=== PATIENT | male | born 1995 | race Caucasian/White ===

== ENCOUNTER 2021-08-22 12:38 | Emergency (ER) | payer OTHER ==
[2021-08-22 12:44] VITALS: BP 128/85; PULSE 87; TEMP 98.6; BMI 32.5
[2021-08-22] MEDS ORDERED: KETOROLAC TROMETHAMINE 30 MG/1 ML VIAL IM ONE (13:44)
[2021-08-22] MEDS ORDERED: KETOROLAC TROMETHAMINE 30 MG/1 ML VIAL ONE (13:45)
== END 2021-08-22 14:12 | disposition home or self-care (01) ==
LOC: JERFT 12:38
PROC: 3E0233Z Introduction of Anti-inflammatory into Muscle, Percutaneous Approach (ICD-10-PCS; principal; 2021-08-22)
DX: S93.492A Sprain of other ligament of left ankle, initial encounter (principal); X50.0XXA Overexertion from strenuous movement or load, initial encounter
CPT/HCPCS: 73610-TC-LT-FY; 99284-25

== ENCOUNTER 2023-08-11 16:01 | Emergency (ER) | payer SELFPAY ==
[2023-08-11 16:22] VITALS: RESP 18; TEMP 97.8; BMI 34.9
[2023-08-11] MEDS ORDERED: ONDANSETRON 4 MG/2 ML VIAL ONE (16:54)
[2023-08-11] MEDS: ONDANSETRON 4 MG/2 ML VIAL IVPUSH ONE (17:11)
[2023-08-11 17:27] LABS: HEMATOCRIT 47.1 % (35.4-49); HEMOGLOBIN 16.2 GM/dL (11.7-16.9); MCH 30.2 pg (25.7-33.7); MCHC 34.3 g/dl (32.0-35.9); MEAN CELL VOLUME 88.1 fl (80-96); PLATELET COUNT 191 10^3/uL (134-434); RBC 5.35 M/mm3 (4.00-5.60); RDW 13.5 % (11.9-15.9); WHITE BLOOD COUNT 16.9 K/mm3 (4.0-10.0)
[2023-08-11 17:33] LABS: POTASSIUM 3.9 mmol/L (3.5-5.1)
[2023-08-11 17:36] LABS: ALBUMIN 4.7 g/dl (3.4-5.0); BLOOD UREA NITROGEN 14.6 mg/dL (7-18); CALCIUM 10.4 mg/dL (8.5-10.1)
[2023-08-11 17:41] LABS: BILIRUBIN,TOTAL 0.8 mg/dL (0.2-1); TOT PROT 8.7 g/dl (6.4-8.2)
[2023-08-11 17:52] LABS: LACTIC ACID 2.2 mmol/L (0.4-2.0)
[2023-08-11] MEDS: SODIUM CHLORIDE 0.9% 500 ML INFUS.BAG IV ONE (17:57)
[2023-08-11 19:22] LABS: ANISOCYTOSIS 0; MACROCYTOSIS 0
[2023-08-11 19:48] LABS: HEMATOCRIT 43.2 % (35.4-49); HEMOGLOBIN 14.9 GM/dL (11.7-16.9); MCH 30.3 pg (25.7-33.7); MCHC 34.6 g/dl (32.0-35.9); MEAN CELL VOLUME 87.7 fl (80-96); MEAN PLT VOLUME 8.8 fl (7.5-11.1); PLATELET COUNT 230 10^3/uL (134-434); RBC 4.93 M/mm3 (4.00-5.60); RDW 13.2 % (11.9-15.9); WHITE BLOOD COUNT 20.4 K/mm3 (4.0-10.0)
[2023-08-11 20:27] LABS: EPI CELLS 11 /uL (0-25.1); HYALINE CASTS 4 /uL (0-3.1); PH,URINE 5.5 (5.0-8.0); URINE APPEARANCE TURBID; URINE BACTERIA 6 /uL (0-1359); URINE BILIRUBIN NEGATIVE (NEGATIVE); URINE COLOR YELLOW; URINE GLUCOSE (UA) NEGATIVE (NEGATIVE); URINE KETONE TRACE (NEGATIVE); URINE LEUK ESTERASE NEGATIVE (NEGATIVE); URINE NITRITE NEGATIVE (NEGATIVE); URINE PROTEIN 3+ (NEGATIVE); URINE RBC 21 /uL (0-23.9); URINE UROBILINOGEN 0.2 mg/dL (0.2-1.0); URINE WBC 34 /uL (0-25.8)
[2023-08-11] MEDS: LACTATED RINGERS SOLUTION 1000 ML INFUS.BAG IV ONE (20:38)
[2023-08-11 20:43] LABS: ANISOCYTOSIS 0; MACROCYTOSIS 0
[2023-08-11 20:53] VITALS: BP 162/86; PULSE 93
== END 2023-08-11 20:52 | disposition home or self-care (01) ==
LOC: JER 16:01
PROC: 3E033GC Introduction of Other Therapeutic Substance into Peripheral Vein, Percutaneous Approach (ICD-10-PCS; principal; 2023-08-11)
DX: R55 Syncope and collapse (principal); F10.90 Alcohol use, unspecified, uncomplicated; Y90.9 Presence of alcohol in blood, level not specified; R00.0 Tachycardia, unspecified; Z20.822 Contact with and (suspected) exposure to COVID-19
CPT/HCPCS: 0241U-QW; 36415; 70450-TC; 71045-TC-FY; 72125-TC; 80053; 81003; 82962; 83605; 83735; 85025; 85027; 87086; 93005; 93010; 99285-25